=== PATIENT | male | born 1940 | race Caucasian/White ===

== ENCOUNTER → 2022-08-27 | Emergency (ER) | payer OTHER ==
[~2022-08-27] VITALS: Ht 182.9 cm; Wt 109.3 kg
[~2022-08-27] MED LIST: ACETAMINOPHEN 325 MG TABLET ONE; ACETAMINOPHEN 325 MG TABLET PO ONE; ACETAMINOPHEN ES 500 MG TABLET PO ONE; CEFEPIME 1 GM VIAL ONE; CEFEPIME 1 GM in IV D5W 50 ML IV ONE; IV NS 0.9% 1,000 ML BAG IV ONE; VANCOMYCIN 1 GM VIAL ONE; VANCOMYCIN 1 GM in IV D5W 250 ML IV ONE
--- NOTE | 2022-08-27 19:30 | NUR ---
IBAN 80 FROM HOME WITH CC OF FEVER, COUGH, GEN BODY WEAKNESS, CHEST PAIN AND REDNESS/SWELLING OF LEFT KNEE WHICH IS PAINFUL TO TOUCH. SCALE OF 6/10. PATIENT LIVES BY HIMSELF, DIDNT TAKE ANY MEDICATION AT HOME. AAOX4, ABLE TO MAKE NEEDS KNOWN. ATTACHED TO MONITOR, VITALS CHECKED.
--- NOTE | 2022-08-27 19:36 | NUR ---
IV LINE STARTED AT LFA 20G, BLOOD DRAWN, COVID SWAB DONE, AND SENT TO LAB
--- NOTE | 2022-08-27 19:37 | NUR ---
COVID SWAB DONE, SENT TO LAB
[2022-08-27 19:57] LABS: BASOPHILS # (AUTO) 0.1 K/uL (0.0-0.2); BASOPHILS % (AUTO) 0.6 % (0.0-2.0); EOSINOPHILS % (AUTO) 0.3 % (0.0-6.0); HEMATOCRIT 44 % (39-51); HEMOGLOBIN 14.6 g/dL (13.5-17.5); LYMPHOCYTES # (AUTO) 2.7 K/uL (0.8-4.8); LYMPHOCYTES % (AUTO) 21.8 % (20.0-44.0); MEAN CORPUSCULAR HGB CONC 33 g/dl (31.0-36.0); MEAN CORPUSCULAR VOLUME 99 fL (80-96); MONOCYTES # (AUTO) 1.6 K/uL (0.1-1.30); MONOCYTES % (AUTO) 12.6 % (2.0-12.0); NEUTROPHILS # (AUTO) 8.1 K/uL (1.8-8.9); NEUTROPHILS % (AUTO) 64.7 % (43.0-81.0); PLATELET COUNT (AUTO) 187 K/uL (150-450); RED BLOOD CELL COUNT(AUTO) 4.46 MIL/uL (4.5-6.0); WHITE BLOOD COUNT (AUTO) 12.6 K/uL (4.3-11.0)
--- NOTE | 2022-08-27 20:09 | NUR ---
URINE COLLECTED, SENT TO LAB
[2022-08-27 20:14] LABS: CARBON DIOXIDE 22 mmol/L (21-32); CHLORIDE 103 mmol/L (98-107); CREATININE 1.6 mg/dL (0.6-1.3); GLUCOSE 97 mg/dL (74-106); POTASSIUM 3.5 mmol/L (3.5-5.1); SODIUM SERUM 138 mmol/L (136-145); UREA NITROGEN, BLOOD 21 mg/dL (7-18)
--- NOTE | 2022-08-27 20:14 | NUR ---
DR GUSTAFSON AT BEDSIDE
[2022-08-27 20:21] LABS: ALANINE AMINOTRANSFERASE 49 U/L (12-78); ALBUMIN 3.7 g/dL (3.4-5.0); ALKALINE PHOSPHATASE 42 U/L (46-116); ASPARTATE AMINOTRANSFERASE 28 U/L (15-37); BILIRUBIN,DIRECT 0.2 mg/dL (0.0-0.2); BILIRUBIN,TOTAL 0.8 mg/dL (0.2-1.0); TOTAL PROTEIN, SERUM 7.2 g/dL (6.4-8.2)
--- NOTE | 2022-08-27 20:40 | NUR ---
SPOKE WITH [facility] AND GAVE VITALS
[2022-08-27 21:14] LABS: BILIRUBIN,URINE NEGATIVE (NEGATIVE); COLOR,URINE YELLOW (YELLOW); LEUKOCYTE ESTERASE ,URINE NEGATIVE (NEGATIVE); NITRITE, URINE NEGATIVE (NEGATIVE); PROTEIN,URINE NEGATIVE (NEGATIVE); UGLUCOSE 3+ mg/dL (NEGATIVE); UROBILINOGEN,URINE 0.2 EU/dL (0.2)
[2022-08-27 21:31] LABS: RBC,URINE 0-2 /HPF (0-2); WBC,URINE 0-2 /HPF (0-3)
[2022-08-27 21:32] LABS: BACTERIA,URINE Rare /HPF (None Seen); SQUAMOUS EPITHELIAL CELL,UR Rare /HPF (None Seen)
--- NOTE | 2022-08-28 00:10 | NUR ---
PT IS GOING TO [facility] UNDER THE CARE OF DR. SKAGGS. CALL [phone] FOR REPORT. ALLY MELTON @ [phone]
[2022-08-28 00:34] VITALS: BP 142/83
--- NOTE | 2022-08-28 01:12 | NUR ---
REPORT GIVEN TO VIOLET COLIN OF [facility] AT [phone]
--- NOTE | 2022-08-28 01:15 | NUR ---
PATIENT TRANSFERRED TO [facility] VIA BLS. VS WNL.
== END | disposition short-term general hospital (02) ==
LOC: ER 19:11
DX: L03.116 Cellulitis of left lower limb (principal); L03.115 Cellulitis of right lower limb; I10 Essential (primary) hypertension; Z60.2 Problems related to living alone; Z20.822 Contact with and (suspected) exposure to COVID-19
CPT/HCPCS: 99285; 96365; 71045; 96361; 87426; 96368; 93005; 73564; 84145; 85025; 80048; 87040 ×2; 87086; 83605; 80076; 85652; 81001; 36415; 84484; 85730; 86140; J3370; J7060 ×2; J7030; A4223; J0692 ×2; C9803